=== PATIENT | female | born 1930 | race Hispanic/Latino ===

== ENCOUNTER 2019-07-02 13:15 | Emergency (ER) | payer MEDICARE ==
[2019-07-02] MEDS ORDERED: ONDANSETRON HCL 4 MG/2 ML VIAL ONE (13:30)
[2019-07-02 13:53] LABS: BASOPHILS % (AUTO) 0.7 % (0.0-5.0); EOSINOPHILS % (AUTO) 5.5 % (0.0-8.0); LYMPHOCYTES % (AUTO) 15.9 % (21.0-51.0); MEAN CORPUSCULAR HGB CONC 33.9 g/dL (32.0-36.0); MEAN CORPUSCULAR VOLUME 97.3 fL (79-99); MONOCYTES % (AUTO) 5.5 % (3.0-13.0); NEUTROPHILS % (AUTO) 72.4 % (40.0-77.0); PLATELET COUNT (AUTO) 259 K/uL (130-400); RED BLOOD CELL COUNT(AUTO) 3.91 MIL/uL (4.00-5.50); RED CELL DISTRIBUTION WIDTH 12.7 % (11.0-15.5); WHITE BLOOD COUNT (AUTO) 8.6 K/uL (4.8-10.8)
[2019-07-02 14:04] LABS: CREATININE 1.1 mg/dL (0.5-1.5)
[2019-07-02 14:05] LABS: INR 0.99 (0.85-1.15); PROTHROMBIN TIME 10.4 SEC (9.6-11.6)
[2019-07-02 14:08] LABS: ALBUMIN 3.8 g/dL (3.5-5.0); BILIRUBIN,TOTAL 0.5 mg/dL (0.2-1.0); TOTAL PROTEIN, SERUM 7.2 g/dL (6.0-8.3)
[2019-07-02 14:44] LABS: APPEARANCE,URINE CLOUDY (CLEAR); BILIRUBIN,URINE NEGATIVE (NEGATIVE); COLOR,URINE YELLOW (YELLOW); GLUCOSE, URINE (UA) NEGATIVE (NEGATIVE); KETONES,URINE NEGATIVE (NEGATIVE); LEUKOCYTE ESTERASE ,URINE SMALL (NEGATIVE); NITRATE,URINE NEGATIVE (NEGATIVE); OCCULT BLOOD,URINE NEGATIVE (NEGATIVE); PROTEIN,URINE NEGATIVE (NEGATIVE)
[2019-07-02] MEDS ORDERED: LIDOCAINE HCL 2% VISCOUS 15 ML UDCUP ONE (14:47)
[2019-07-02] MEDS ORDERED: MAGNESIUM HYDROXIDE 30 ML/UDCUP ONE (14:47)
[2019-07-02 14:55] LABS: RBC,URINE 0-1 /HPF (0-1)
[2019-07-02 14:56] LABS: BACTERIA,URINE Few /HPF (None Seen)
== END 2019-07-02 16:34 | disposition home or self-care (01) ==
LOC: EDH 13:15
DX: K29.00 Acute gastritis without bleeding (principal); E78.5 Hyperlipidemia, unspecified; I10 Essential (primary) hypertension
CPT/HCPCS: 36415; 71045; 80053; 81001; 82550; 83690; 84484 ×2; 85025; 85610; 85730; 87088; 87804 ×2; 93005; 96374; 99285; J2405

== ENCOUNTER 2019-09-02 10:35 | Emergency (ER) | payer MEDICARE ==
[2019-09-02] MEDS ORDERED: KETOROLAC TROMETHAMINE 15MG/ML ONE (10:56)
[2019-09-02] MEDS ORDERED: MORPHINE SULFATE 2 MG/ML 1ML SYG ONE (10:56)
[2019-09-02] MEDS ORDERED: ONDANSETRON HCL 4 MG/2 ML VIAL ONE (10:57)
== END 2019-09-02 12:58 | disposition home or self-care (01) ==
LOC: EDH 10:35
DX: S23.3XXA Sprain of ligaments of thoracic spine, initial encounter (principal); I10 Essential (primary) hypertension; E78.5 Hyperlipidemia, unspecified; Z79.899 Other long term (current) drug therapy; W18.09XA Striking against other object with subsequent fall, initial encounter; Y93.89 Activity, other specified; Y92.89 Other specified places as the place of occurrence of the external cause; Y99.8 Other external cause status
CPT/HCPCS: 70450; 71250; 72125; 74176; 96374; 96375; 99284; J1885; J2405

== ENCOUNTER 2020-04-28 20:04 | Inpatient (IN) | payer MEDICARE ==
[~2020-04-28] VITALS: Ht 144.8 cm; Wt 49.9 kg
[2020-04-28] MEDS ORDERED: HYDRALAZINE HCL 20 MG/ML VIAL ONE (22:07)
[2020-04-28] MEDS ORDERED: CEFTRIAXONE SODIUM 1 GM ONE (22:40)
[2020-04-28] MEDS ORDERED: SODIUM CHLORIDE 0.9% 500ML 500 ML IV ONE (23:45)
[2020-04-28] MEDS ORDERED: ONDANSETRON HCL 4 MG/2 ML VIAL ONE (23:53)
[2020-04-29] MEDS ORDERED: ACETAMINOPHEN 325 MG TAB PO PRN (00:15)
[2020-04-29] MEDS ORDERED: LACTULOSE 20 GM/30 ML UDCUP PO PRN (00:15)
[2020-04-29] MEDS ORDERED: HYDRALAZINE HCL 20 MG/ML VIAL IV PRN (00:15)
[2020-04-29] MEDS ORDERED: SODIUM CHLORIDE 0.9% 1000ML 1,000 ML IV ONE (06:35)
[2020-04-29] MEDS ORDERED: METHYLPREDNISOLONE SOD SUCC 40MG/ML 1ML IVP SCH (09:45)
[2020-04-29] MEDS: SODIUM CHLORIDE 0.9% 1000ML 1,000 ML IV SCH (10:03)
[2020-04-29] MEDS: CEFTRIAXONE SODIUM 1 GM IV SCH (22:00)
[2020-04-29] MEDS ORDERED: CEFTRIAXONE SODIUM 1 GM ONE (22:36)
[2020-04-30] MEDS: SODIUM CHLORIDE 0.9% 1000ML 1,000 ML IV SCH ×2 (06:03→16:35)
[2020-04-30] MEDS: FAMOTIDINE 20MG TAB 20 MG TAB PO SCH (09:00)
[2020-04-30 11:40] VITALS: BP 149/71; PULSE 71; RESP 20; TEMP 98.2
--- NOTE | 2020-04-30 14:53 | NUR ---
DCP: HOME WITH FAMILY Sw spoke to pt's grandson Ramon [phone]. Pt lives with her son Vitor Levi [phone] and his and pt's grandson. Per brenda, pt has daily provider 8-12, (does not know agency), uses cane walker and shower chair, no HH services. [facility] Desean Calderon and she uses [facility] for rx medications. Plan is [place] family at [place] Addendum: 04/30/20 at 1456 by JOSE NOVAK Amended: Links added.
[2020-04-30 16:00] VITALS: BP 193/79; PULSE 62; RESP 17; TEMP 98
[2020-04-30] MEDS: ONDANSETRON HCL 4 MG/2 ML VIAL IV PRN (16:42)
--- NOTE | 2020-04-30 17:25 | NUR ---
0132 PATIENT SIGNED IM LETTER, I FAXED IM LETTER TO [phone] AND PLACED IN CHART UNDER CONSENT TAB.
[2020-04-30 19:00] VITALS: BP 129/55; PULSE 94; RESP 18; TEMP 98.1
[2020-04-30] MEDS: CEFTRIAXONE SODIUM 1 GM IV SCH (20:58)
[2020-05-01] VITALS: BP 144/77; PULSE 70; RESP 17; TEMP 98.5
[2020-05-01] MEDS: SODIUM CHLORIDE 0.9% 1000ML 1,000 ML IV SCH ×3 (01:15→21:39)
[2020-05-01 04:00] VITALS: BP 180/68; PULSE 74; RESP 18; TEMP 98.7
[2020-05-01 08:00] VITALS: BP 165/56; PULSE 66; RESP 17; TEMP 98.3
[2020-05-01] MEDS: FAMOTIDINE 20MG TAB 20 MG TAB PO SCH (08:23)
[2020-05-01] MEDS: LOSARTAN 100 MG TABLET PO SCH (08:23)
[2020-05-01] MEDS: ACETAMINOPHEN 325 MG TAB PO PRN (10:18)
[2020-05-01 12:00] VITALS: BP 136/52; PULSE 63; RESP 18; TEMP 98.7
[2020-05-01] MEDS ORDERED: IBUPROFEN 800 MG TAB PO SCH (14:00)
[2020-05-01] MEDS ORDERED: MORPHINE SULFATE 2 MG/ML 1ML SYG IVP PRN (14:00)
[2020-05-01] MEDS: TAMSULOSIN HCL 0.4 MG CAP.ER.24H PO SCH (14:40)
[2020-05-01] MEDS ORDERED: LISINOPRIL 5 MG TABLET PO SCH (15:15)
--- NOTE | 2020-05-01 15:15 | NUR ---
DR GRANADO'S OFFICE CALLED TO REQUEST INFORMATION ABOUT PATIENT AND ASKED WHY HE WAS CONSULTED. INSTRUCTED THAT SHE CAME IN WITH A UTI AND RENAL CALCULI AND THAT SHE MIGHT BE PASSING THE STONE SHE IS STARTING TO HAVE MORE SEVERE LEFT FLANK PAIN. ALSO REPORTED THE FINDINGS OF THE CT SCAN AND SHE SAID SHE WOULD GIVE HIM THE INFORMATION. DR LOPEZ WAS BY EARLIER AND ORDER PAIN MEDICATION WELL SOMETHING TO FLOMAX AND LISINOPRIL FOR BP CONTROL. Addendum: 05/01/20 at 1600 by JOSÉ MIGUEL MCALLISTER RN RN Amended: Links added.
[2020-05-01] MEDS: POLYETHYLENE GLYCOL 3350 17 GM POWD.PACK PO SCH (15:34)
[2020-05-01] MEDS: ONDANSETRON HCL 4 MG/2 ML VIAL IV PRN (15:41)
[2020-05-01 16:00] VITALS: BP 178/56; PULSE 57; RESP 18; TEMP 97.9
[2020-05-01 20:00] VITALS: BP 161/71; PULSE 69; RESP 18; TEMP 97.7
[2020-05-01] MEDS: CEFTRIAXONE SODIUM 1 GM IV SCH (21:39)
[2020-05-02] VITALS: BP 150/70; PULSE 71; RESP 19; TEMP 97.7
[2020-05-02 04:00] VITALS: BP 148/75; PULSE 68; RESP 19; TEMP 98.4
[2020-05-02 07:00] VITALS: BP 162/69; PULSE 74; RESP 20; TEMP 98
--- NOTE | 2020-05-02 07:35 | NUR ---
ASSESSMENT ENCOUNTERED PT A&OX3, CALM COOPERATIVE AND DOES NOT APPEAR TO BE IN ANY DISTRESS NOR ANY NEURO DEFICITS PRESENT. PT DENIES PAIN, SOB, NAUSEA. PT IS AMBULATORY, GAIT SLOW BUT STEADY WITH CANE AND 1 PERSON ASSIST, PT IS NPO PENDING PROCEDURE BY RADIOLOGY. CALL LIGHT WITHIN REACH.
[2020-05-02] MEDS ORDERED: IOHEXOL-350 75 ML VIAL IV ONE (08:07)
[2020-05-02] MEDS: FAMOTIDINE 20MG TAB 20 MG TAB PO SCH (10:31)
[2020-05-02] MEDS: LOSARTAN 100 MG TABLET PO SCH (10:31)
[2020-05-02] MEDS: TAMSULOSIN HCL 0.4 MG CAP.ER.24H PO SCH (10:31)
[2020-05-02] MEDS: POLYETHYLENE GLYCOL 3350 17 GM POWD.PACK PO SCH (10:31)
[2020-05-02] MEDS: AMLODIPINE BESYLATE 5 MG TAB PO SCH (10:31)
[2020-05-02 11:00] VITALS: BP 181/76; PULSE 67; RESP 20; TEMP 97.6
[2020-05-02 16:00] VITALS: BP 152/59; PULSE 74; RESP 20; TEMP 97.6
[2020-05-02 20:00] VITALS: BP 140/67; PULSE 72; RESP 18; TEMP 98.4
[2020-05-02] MEDS: CEFTRIAXONE SODIUM 1 GM IV SCH (21:58)
[2020-05-02] MEDS: ACETAMINOPHEN 325 MG TAB PO PRN (22:02)
[2020-05-03] VITALS: BP 150/64; PULSE 70; RESP 18; TEMP 98.7
[2020-05-03 04:00] VITALS: BP 132/63; PULSE 69; RESP 18; TEMP 98.2
--- NOTE | 2020-05-03 06:35 | NUR ---
ASSESSMENT ENCOUNTERED PT AMBULATING FROM BATHROOM, GAIT SLOW BUT STEADY WITH CANE, A&OX3, CALM COOPERATIVE AND DOES NOT APPEAR TO BE IN ANY DISTRESS NOR ANY NEURO DEFICITS PRESENT. PT DENIES PAIN, SOB, NAUSEA. PT APPEARS COMFORTABLE, UP IN CHAIR. CALL LIGHT WITHIN REACH.
[2020-05-03 07:00] VITALS: BP 146/57; PULSE 73; RESP 20; TEMP 97.7
[2020-05-03] MEDS: AMLODIPINE BESYLATE 5 MG TAB PO SCH (08:54)
[2020-05-03] MEDS: TAMSULOSIN HCL 0.4 MG CAP.ER.24H PO SCH (08:54)
[2020-05-03] MEDS: FAMOTIDINE 20MG TAB 20 MG TAB PO SCH (08:54)
[2020-05-03] MEDS: LOSARTAN 100 MG TABLET PO SCH (08:54)
--- NOTE | 2020-05-03 13:00 | NUR ---
DISCHARGE INSTRUCTIONS GIVEN, PIV REMOVED AND INTACT, DISCHARGED HOME TO FAMILY VEHICLE VIA WHEELCHAIR.
== END 2020-05-03 13:10 | disposition home or self-care (01) | DRG 690 ==
LOC: EDH 20:04 → EDHIP 04-29 00:03 → OBSVTOIN 04-29 00:03 → 4AH 04-30 11:30
PROVIDERS: ADMIT Hospitalist; ATTEND Hospitalist
DX: N13.6 Pyonephrosis (principal); K57.30 Diverticulosis of large intestine without perforation or abscess without bleeding; I10 Essential (primary) hypertension; E78.5 Hyperlipidemia, unspecified; K59.00 Constipation, unspecified; Z90.49 Acquired absence of other specified parts of digestive tract; Z87.440 Personal history of urinary (tract) infections; Z79.899 Other long term (current) drug therapy

== ENCOUNTER → 2020-05-27 | Outpatient (CLI) | payer MEDICARE ==
[~2020-05-27] MED LIST: ACET-66 PO; AMLO5TAB9 PO
[2020-05-27 10:10] LABS: EOSINOPHILS % (AUTO) 7.9 % (0.0-8.0); HEMATOCRIT 40.1 % (36-48); LYMPHOCYTES % (AUTO) 24.8 % (21.0-51.0); MEAN CORPUSCULAR HEMOGLOBIN 32.1 pg (27.0-33.0); MEAN CORPUSCULAR HGB CONC 32.2 g/dL (32.0-36.0); MEAN CORPUSCULAR VOLUME 99.8 fL (79-99); MONOCYTES % (AUTO) 5.7 % (3.0-13.0); NEUTROPHILS % (AUTO) 60.3 % (40.0-77.0); PLATELET COUNT (AUTO) 302 K/uL (130-400); RED BLOOD CELL COUNT(AUTO) 4.02 MIL/uL (4.00-5.50); RED CELL DISTRIBUTION WIDTH 11.8 % (11.0-15.5); WHITE BLOOD COUNT (AUTO) 7.2 K/uL (4.8-10.8)
[2020-05-27 10:25] LABS: CREATININE 0.7 mg/dL (0.5-1.5); POTASSIUM 3.9 mmol/L (3.5-5.1)
== END | disposition home or self-care (01) ==
LOC: LAB 09:21
PROVIDERS: ATTEND Urology
DX: N20.0 Calculus of kidney (principal)
CPT/HCPCS: 36415; 80048; 85025

== ENCOUNTER → 2020-05-30 | Outpatient (CLI) | payer MEDICARE ==
[~2020-05-30] MED LIST changes: +IOHEXOL-350 75 ML VIAL IV ONE
== END | disposition home or self-care (01) ==
LOC: RAH 08:49
PROVIDERS: ATTEND Urology
DX: N20.0 Calculus of kidney (principal); M47.815 Spondylosis without myelopathy or radiculopathy, thoracolumbar region; Z90.49 Acquired absence of other specified parts of digestive tract
CPT/HCPCS: 74400; Q9967

== ENCOUNTER 2020-06-07 10:26 | Emergency (ER) | payer MEDICARE ==
[~2020-06-07 10:26] MED LIST changes: -IOHEXOL-350 75 ML VIAL IV ONE
[2020-06-07] MEDS ORDERED: ACETAMINOPHEN EXTRA STRENGTH 500 MG TABLET ONE (11:44)
[2020-06-07 13:02] LABS: BASOPHILS % (AUTO) 0.4 % (0.0-5.0); EOSINOPHILS % (AUTO) 1.5 % (0.0-8.0); HEMATOCRIT 39.4 % (36-48); LYMPHOCYTES % (AUTO) 29.9 % (21.0-51.0); MEAN CORPUSCULAR HEMOGLOBIN 31.8 pg (27.0-33.0); MEAN CORPUSCULAR HGB CONC 32.5 g/dL (32.0-36.0); MEAN CORPUSCULAR VOLUME 97.8 fL (79-99); MONOCYTES % (AUTO) 8.5 % (3.0-13.0); NEUTROPHILS % (AUTO) 59.3 % (40.0-77.0); PLATELET COUNT (AUTO) 218 K/uL (130-400); RED BLOOD CELL COUNT(AUTO) 4.03 MIL/uL (4.00-5.50); RED CELL DISTRIBUTION WIDTH 11.8 % (11.0-15.5); WHITE BLOOD COUNT (AUTO) 5.4 K/uL (4.8-10.8)
[2020-06-07 13:09] LABS: CREATININE 0.8 mg/dL (0.5-1.5); POTASSIUM 4.5 mmol/L (3.5-5.1)
[2020-06-07 13:19] LABS: ALBUMIN 3.9 g/dL (3.5-5.0); BILIRUBIN,TOTAL 0.5 mg/dL (0.2-1.0); TOTAL PROTEIN, SERUM 7.9 g/dL (6.0-8.3)
[2020-06-07] MEDS ORDERED: DEXAMETHASONE SOD PHOSPHATE 4 MG/ML 1ML VIAL ONE (13:48)
[2020-06-07] MEDS ORDERED: SODIUM CHLORIDE 0.9% 500ML 500 ML IV ONE (13:49)
== END 2020-06-07 14:37 | disposition home or self-care (01) ==
LOC: EDH 10:26
DX: U07.1 COVID-19 (principal); J12.89 Other viral pneumonia; I10 Essential (primary) hypertension; E78.5 Hyperlipidemia, unspecified; Z90.49 Acquired absence of other specified parts of digestive tract
CPT/HCPCS: 36415; 71045; 80053; 82550; 84484; 85025; 87426; 93005; 96374; 99285; J1100; J7040

== ENCOUNTER 2020-06-26 14:59 | Emergency (ER) | payer MEDICARE ==
[2020-06-26 15:43] LABS: APPEARANCE,URINE Cloudy (CLEAR); BILIRUBIN,URINE Negative (NEGATIVE); COLOR,URINE Dark Yellow (YELLOW); GLUCOSE, URINE (UA) Negative (NEGATIVE); KETONES,URINE Negative (NEGATIVE); LEUKOCYTE ESTERASE ,URINE Trace (NEGATIVE); NITRATE,URINE Negative (NEGATIVE); OCCULT BLOOD,URINE Negative (NEGATIVE); PROTEIN,URINE Trace mg/dL (NEGATIVE)
[2020-06-26 16:01] LABS: BASOPHILS % (AUTO) 0.7 % (0.0-5.0); EOSINOPHILS % (AUTO) 4.8 % (0.0-8.0); HEMATOCRIT 38.4 % (36-48); LYMPHOCYTES % (AUTO) 28.5 % (21.0-51.0); MEAN CORPUSCULAR HEMOGLOBIN 31.6 pg (27.0-33.0); MEAN CORPUSCULAR HGB CONC 32.6 g/dL (32.0-36.0); MEAN CORPUSCULAR VOLUME 97.2 fL (79-99); MONOCYTES % (AUTO) 7.3 % (3.0-13.0); NEUTROPHILS % (AUTO) 58.5 % (40.0-77.0); PLATELET COUNT (AUTO) 249 K/uL (130-400); RED BLOOD CELL COUNT(AUTO) 3.95 MIL/uL (4.00-5.50); RED CELL DISTRIBUTION WIDTH 11.9 % (11.0-15.5); WHITE BLOOD COUNT (AUTO) 5.6 K/uL (4.8-10.8)
[2020-06-26 16:07] LABS: BACTERIA,URINE Few /HPF (None Seen)
[2020-06-26 16:08] LABS: MUCUS,URINE Few LPF (None Seen); SQUAMOUS EPITHELIAL CELL,UR Rare /HPF (0-2); URIC ACID CRYSTALS,URINE Few /LPF (None Seen); YEAST,URINE BUDDING Rare /HPF (None Seen)
[2020-06-26 16:28] LABS: CREATININE 0.9 mg/dL (0.5-1.5); POTASSIUM 3.6 mmol/L (3.5-5.1)
[2020-06-26 16:33] LABS: ALBUMIN 3.7 g/dL (3.5-5.0); BILIRUBIN,TOTAL 0.4 mg/dL (0.2-1.0); TOTAL PROTEIN, SERUM 7.6 g/dL (6.0-8.3)
== END 2020-06-26 17:00 | disposition home or self-care (01) ==
LOC: EDH 14:59
DX: B37.3 Candidiasis of vulva and vagina (principal); E78.5 Hyperlipidemia, unspecified; I10 Essential (primary) hypertension; Z90.49 Acquired absence of other specified parts of digestive tract
CPT/HCPCS: 36415; 80053; 81001; 85025

== ENCOUNTER 2020-07-18 09:30 | Emergency (ER) | payer MEDICARE ==
[2020-07-18 10:07] LABS: BASOPHILS % (AUTO) 0.3 % (0.0-5.0); EOSINOPHILS % (AUTO) 0.3 % (0.0-8.0); HEMATOCRIT 37.5 % (36-48); MEAN CORPUSCULAR HEMOGLOBIN 31.6 pg (27.0-33.0); MEAN CORPUSCULAR HGB CONC 32.8 g/dL (32.0-36.0); MEAN CORPUSCULAR VOLUME 96.4 fL (79-99); MONOCYTES % (AUTO) 4.5 % (3.0-13.0); NEUTROPHILS % (AUTO) 84.6 % (40.0-77.0); PLATELET COUNT (AUTO) 295 K/uL (130-400); RED BLOOD CELL COUNT(AUTO) 3.89 MIL/uL (4.00-5.50); RED CELL DISTRIBUTION WIDTH 12.3 % (11.0-15.5); WHITE BLOOD COUNT (AUTO) 10.8 K/uL (4.8-10.8)
[2020-07-18 10:10] LABS: APPEARANCE,URINE Clear (CLEAR); BILIRUBIN,URINE Negative (NEGATIVE); COLOR,URINE Yellow (YELLOW); GLUCOSE, URINE (UA) Negative (NEGATIVE); KETONES,URINE Negative (NEGATIVE); LEUKOCYTE ESTERASE ,URINE Small (NEGATIVE); NITRATE,URINE Negative (NEGATIVE); OCCULT BLOOD,URINE Large (NEGATIVE); PROTEIN,URINE Trace mg/dL (NEGATIVE); UROBILINOGEN,URINE 0.2 mg/dL (0.2-1.0)
[2020-07-18 10:23] LABS: CREATININE 0.9 mg/dL (0.5-1.5); POTASSIUM 4.8 mmol/L (3.5-5.1)
[2020-07-18 10:25] LABS: BACTERIA,URINE Few /HPF (None Seen); WBC,URINE 0-1 /HPF (0-1)
[2020-07-18 10:27] LABS: ALBUMIN 4.1 g/dL (3.5-5.0); BILIRUBIN,TOTAL 0.7 mg/dL (0.2-1.0); TOTAL PROTEIN, SERUM 8.1 g/dL (6.0-8.3)
[2020-07-18] MEDS ORDERED: ONDANSETRON HCL 4 MG/2 ML VIAL ONE (13:24)
== END 2020-07-18 14:35 | disposition home or self-care (01) ==
LOC: EDH 09:30
DX: K52.9 Noninfective gastroenteritis and colitis, unspecified (principal); R00.1 Bradycardia, unspecified; E78.5 Hyperlipidemia, unspecified; I10 Essential (primary) hypertension; Z90.49 Acquired absence of other specified parts of digestive tract
CPT/HCPCS: 36415; 74176; 80053; 81001; 82550; 83690; 84484; 85025; 93005; 96374; 99285; J2405; 96361

== ENCOUNTER 2020-12-23 16:57 | Emergency (ER) | payer MEDICARE ==
[~2020-12-23 16:57] MED LIST changes: +AMLO-257 PO; -AMLO5TAB9 PO
[2020-12-23] MEDS ORDERED: LIDOCAINE 5% TOPICAL PATCH TP ONE (17:41)
[2020-12-23] MEDS ORDERED: ORPHENADRINE CITRATE 30 MG/ML ML ONE (17:41)
[2020-12-23] MEDS ORDERED: ACETAMINOPHEN WITH CODEINE 1 TAB TAB ONE (17:42)
[2020-12-23 17:46] LABS: BASOPHILS % (AUTO) 0.7 % (0.0-5.0); EOSINOPHILS % (AUTO) 3.7 % (0.0-8.0); HEMATOCRIT 39.6 % (36-48); MEAN CORPUSCULAR HEMOGLOBIN 31.3 pg (27.0-33.0); MEAN CORPUSCULAR HGB CONC 33.1 g/dL (32.0-36.0); MEAN CORPUSCULAR VOLUME 94.7 fL (79-99); MONOCYTES % (AUTO) 6.8 % (3.0-13.0); NEUTROPHILS % (AUTO) 72.4 % (40.0-77.0); PLATELET COUNT (AUTO) 278 K/uL (130-400); RED BLOOD CELL COUNT(AUTO) 4.18 MIL/uL (4.00-5.50); RED CELL DISTRIBUTION WIDTH 12.1 % (11.0-15.5); WHITE BLOOD COUNT (AUTO) 7.1 K/uL (4.8-10.8)
[2020-12-23 17:55] LABS: POTASSIUM 4.5 mmol/L (3.5-5.1)
[2020-12-23 18:04] LABS: ALBUMIN 3.8 g/dL (3.5-5.0); BILIRUBIN,TOTAL 0.5 mg/dL (0.2-1.0); TOTAL PROTEIN, SERUM 7.3 g/dL (6.0-8.3)
== END 2020-12-23 19:38 | disposition home or self-care (01) ==
LOC: EDH 16:57
DX: S16.1XXA Strain of muscle, fascia and tendon at neck level, initial encounter (principal); R55 Syncope and collapse; M25.512 Pain in left shoulder; M25.511 Pain in right shoulder; I10 Essential (primary) hypertension; E78.5 Hyperlipidemia, unspecified; Z90.49 Acquired absence of other specified parts of digestive tract; W18.39XA Other fall on same level, initial encounter; Y93.89 Activity, other specified; Y92.89 Other specified places as the place of occurrence of the external cause; Y99.8 Other external cause status
CPT/HCPCS: 36415; 80053; 83605; 85025; 84484; 93005; 96374; 99284; J2360

== ENCOUNTER 2021-09-24 11:06 | Emergency (ER) | payer MEDICARE ==
[~2021-09-24] VITALS: Ht 144.8 cm; Wt 51.3 kg
[2021-09-24 11:41] LABS: BASOPHILS % (AUTO) 0.4 % (0.0-5.0); EOSINOPHILS % (AUTO) 2.6 % (0.0-8.0); LYMPHOCYTES % (AUTO) 25.3 % (21.0-51.0); MEAN CORPUSCULAR HEMOGLOBIN 31.3 pg (27.0-33.0); MEAN CORPUSCULAR HGB CONC 32.8 g/dL (32.0-36.0); MEAN CORPUSCULAR VOLUME 95.4 fL (79-99); MONOCYTES % (AUTO) 6.9 % (3.0-13.0); NEUTROPHILS % (AUTO) 64.6 % (40.0-77.0); PLATELET COUNT (AUTO) 254 K/uL (130-400); RED BLOOD CELL COUNT(AUTO) 4.09 MIL/uL (4.00-5.50); RED CELL DISTRIBUTION WIDTH 12.3 % (11.0-15.5); WHITE BLOOD COUNT (AUTO) 4.9 K/uL (4.8-10.8)
[2021-09-24 12:01] LABS: CREATININE 0.8 mg/dL (0.5-1.5); POTASSIUM 4.1 mmol/L (3.5-5.1)
[2021-09-24 12:06] LABS: ALBUMIN 3.7 g/dL (3.5-5.0); BILIRUBIN,TOTAL 0.5 mg/dL (0.2-1.0); TOTAL PROTEIN, SERUM 7.3 g/dL (6.0-8.3)
[2021-09-24 13:17] LABS: APPEARANCE,URINE Cloudy (CLEAR); BILIRUBIN,URINE Negative (NEGATIVE); COLOR,URINE Yellow (YELLOW); GLUCOSE, URINE (UA) Negative (NEGATIVE); KETONES,URINE Negative (NEGATIVE); LEUKOCYTE ESTERASE ,URINE Large (NEGATIVE); NITRATE,URINE Negative (NEGATIVE); OCCULT BLOOD,URINE Negative (NEGATIVE); PROTEIN,URINE Negative (NEGATIVE)
[2021-09-24] MEDS ORDERED: FLUT16H NASAL (13:47)
[2021-09-24] MEDS ORDERED: CEPH500B PO (13:47)
[2021-09-24] MEDS ORDERED: 0.9%NACL 1000ML 1,000 ML IV ONE (13:56)
[2021-09-24] MEDS ORDERED: LACTATED RINGERS 1000ML 1,000 ML IV ONE (14:00)
[2021-09-24 14:06] VITALS: BP 148/60
[2021-09-24 14:07] LABS: BACTERIA,URINE Few /HPF (None Seen); RBC,URINE 0-1 /HPF (0-1); SQUAMOUS EPITHELIAL CELL,UR Moderate /HPF (0-2)
== END 2021-09-24 14:05 | disposition home or self-care (01) ==
LOC: EDH 11:06
DX: N39.0 Urinary tract infection, site not specified (principal); J32.1 Chronic frontal sinusitis; I10 Essential (primary) hypertension
CPT/HCPCS: 36415; 70450; 80053; 81001; 84484; 85025; 87088; 93005; 99285; J7030

== ENCOUNTER 2022-04-11 11:58 | Emergency (ER) | payer MEDICARE ==
[~2022-04-11] VITALS: Ht 144.8 cm; Wt 45.4 kg
[~2022-04-11 11:58] MED LIST changes: +CEPH500B PO; +FLUT16H NASAL
[2022-04-11] MEDS ORDERED: KETOROLAC 15MG/ML VIAL (15MG/ML) IV ONE (12:30)
[2022-04-11 12:48] LABS: BASOPHILS % (AUTO) 0.7 % (0.0-5.0); HEMATOCRIT 38.9 % (36-48); LYMPHOCYTES % (AUTO) 18.7 % (21.0-51.0); MEAN CORPUSCULAR HEMOGLOBIN 31.4 pg (27.0-33.0); MEAN CORPUSCULAR HGB CONC 32.9 g/dL (32.0-36.0); MEAN CORPUSCULAR VOLUME 95.6 fL (79-99); MONOCYTES % (AUTO) 5.8 % (3.0-13.0); NEUTROPHILS % (AUTO) 67.5 % (40.0-77.0); PLATELET COUNT (AUTO) 266 K/uL (130-400); RED BLOOD CELL COUNT(AUTO) 4.07 MIL/uL (4.00-5.50); RED CELL DISTRIBUTION WIDTH 11.9 % (11.0-15.5); WHITE BLOOD COUNT (AUTO) 6.7 K/uL (4.8-10.8)
[2022-04-11 12:57] LABS: CREATININE 0.8 mg/dL (0.5-1.5); POTASSIUM 3.8 mmol/L (3.5-5.1)
[2022-04-11 13:01] LABS: APPEARANCE,URINE Clear (CLEAR); BILIRUBIN,URINE Negative (NEGATIVE); COLOR,URINE Yellow (YELLOW); GLUCOSE, URINE (UA) Negative (NEGATIVE); KETONES,URINE Negative (NEGATIVE); LEUKOCYTE ESTERASE ,URINE Negative (NEGATIVE); NITRATE,URINE Negative (NEGATIVE); OCCULT BLOOD,URINE Negative (NEGATIVE); PH,URINE 6.5 (5.0-8.0); PROTEIN,URINE POS 1+ mg/dL (NEGATIVE)
[2022-04-11 13:02] LABS: ALBUMIN 3.4 g/dL (3.5-5.0); BILIRUBIN,TOTAL 0.7 mg/dL (0.2-1.0); TOTAL PROTEIN, SERUM 6.9 g/dL (6.0-8.3)
[2022-04-11 13:29] LABS: BACTERIA,URINE Few /HPF (None Seen); RBC,URINE None Seen /HPF (0-1); WBC,URINE None Seen /HPF (0-1)
[2022-04-11 14:13] VITALS: BP 153/57
== END 2022-04-11 14:33 | disposition home or self-care (01) ==
LOC: EDH 11:58
DX: R53.1 Weakness (principal); M25.551 Pain in right hip; M19.90 Unspecified osteoarthritis, unspecified site; Z20.822 Contact with and (suspected) exposure to COVID-19; Z79.899 Other long term (current) drug therapy
CPT/HCPCS: 36415; 71045; 73502; 80053; 81001; 82550; 84484; 85025; 87635; 87804 ×2; 93005; 96374; 99285; C9803; J1885